=== PATIENT | female | born 1950 ===

== ENCOUNTER 2022-03-01 06:28 | Day surgery (SDC) | payer OTHER ==
[~2022-03-01 06:28] MED LIST: AMLODIPINE BESYL5 MG PO; ATORVASTATIN CA10 MG PO; COZAAR100 MG PO; GABAPENTIN100 M2 PO; GLIPIZIDE-METF1 EAC2 PO; JARDIANCE25 MG PO; LEVO-T75 MCG PO
[2022-03-01] MEDS ORDERED: IBU600 MG PO (11:21)
== END 2022-03-01 15:25 | disposition home or self-care (01) ==
LOC: CIR.AMB 06:28
PROVIDERS: ATTEND Obstetrics & Gynecology Gynecology
DX: N84.0 Polyp of corpus uteri (principal); D26.1 Other benign neoplasm of corpus uteri; E11.40 Type 2 diabetes mellitus with diabetic neuropathy, unspecified; I10 Essential (primary) hypertension; E03.9 Hypothyroidism, unspecified; Z86.16 Personal history of COVID-19